=== PATIENT | male | born 1960 | race Caucasian/White ===

== ENCOUNTER 2021-06-08 14:21 | Day surgery (SDC) | payer MEDICARE, MEDICAID ==
[~2021-06-08] VITALS: Ht 175.3 cm; Wt 110.0 kg
[~2021-06-08 14:21] MED LIST: ASPI-1265 PO; DOCU100C41 PO; LISI10TA27 PO; LOP25T PO; NORCO10T PO; PRAV40TA65 PO; WARF-113 PO
[2021-06-08] MEDS ORDERED: normal saline 1,000 ML IV SCH (14:55)
[2021-06-08] MEDS ORDERED: diphenhydrAMINE 25mg capsule PO PRN (14:55)
[2021-06-08] MEDS ORDERED: LORazepam 0.5 MG tablet PO PRN (14:55)
[2021-06-08] MEDS ORDERED: ROSU40TA PO (15:16)
[2021-06-08] MEDS ORDERED: CLOP75TA15 PO (15:16)
[2021-06-08] MEDS ORDERED: clotrimazole 1% TOP (15:16)
[2021-06-08] MEDS ORDERED: METF-436 PO (15:16)
[2021-06-08] MEDS ORDERED: WARF4TAB69 PO (15:16)
[2021-06-08] MEDS ORDERED: ENOX120D SUBCUT (15:16)
[2021-06-08] MEDS ORDERED: FLUO1VIA8 (15:16)
[2021-06-08] MEDS ORDERED: WARF-55 PO (15:16)
[2021-06-08] MEDS ORDERED: KEN0.1O TP (15:16)
[2021-06-08] MEDS ORDERED: DOPamine 400mg/D5W 250ml 250 ML IV ONE (15:41)
[2021-06-08] MEDS ORDERED: LIDOcaine 1% (10mg/ml)w/preservative injection 20ml MDV ONE (15:41)
[2021-06-08] MEDS ORDERED: atropine 0.1mg/ml 10ml syringe ONE (15:41)
[2021-06-08] MEDS ORDERED: iohexol 350MG/ML 100ml bottle IV ONE ×2 (15:41→17:09)
[2021-06-08] MEDS ORDERED: phenylephrine 10mg/ml inj. ONE (15:41)
[2021-06-08] MEDS ORDERED: heparin 1,000unit/ml 10ml vial 10 ML ONE (15:45)
[2021-06-08 15:52] VITALS: BP 140/85
[2021-06-08 15:56] LABS: BASOPHILS % (AUTO) 0 % (0-1); EOSINOPHILS % (AUTO) 0.8 % (0-6); HEMOGLOBIN 14.4 g/dl (14.0-17.9); LYMPHOCYTES # (AUTO) 1.9 X10'3 (1.1-4.8); LYMPHOCYTES % (AUTO) 36.5 % (21-51); MEAN CORPUSCULAR HEMOGLOBIN 30.2 PG (27.0-31.0); MEAN CORPUSCULAR HGB CONC 33.6 g/dL (33.0-36.5); MEAN CORPUSCULAR VOLUME 89.7 FL (78-98); MEAN PLATELET VOLUME 9.3 FL (7.4-10.4); MONOCYTES # (AUTO) 0.5 X10'3 (0-0.9); NEUTROPHILS # (AUTO) 2.8 X10'3 (1.8-7.7); NEUTROPHILS % (AUTO) 53.7 % (42-75); PLATELET COUNT 110 X10'3 (140-440); RED BLOOD COUNT 4.79 X10'6 (4.70-6.10); RED CELL DISTRIBUTION WIDTH 14.3 % (11.5-14.5); WHITE BLOOD COUNT 5.3 X10'3 (4.5-11.0)
[2021-06-08 16:11] LABS: ANION GAP 10 (8-16); BLOOD UREA NITROGEN 12 MG/DL (7-18); CHLORIDE 103 MMOL/L (99-107); GLUCOSE 123 MG/DL (70-104); POTASSIUM 4.1 MMOL/L (3.5-5.1); SODIUM 137 MMOL/L (135-145); TOTAL CARBON DIOXIDE 23.9 MMOL/L (24-32); eGFR > 90 ML/MIN
[2021-06-08] MEDS ORDERED: midazolam 1 mg/ML 2ml injection ONE ×2 (17:26→17:33)
[2021-06-08 17:45] VITALS: BP 140/71
[2021-06-08 18:00] VITALS: BP 134/66
--- NOTE | 2021-06-08 18:00 | NUR ---
Patient in room . I have received report from Juan CACERES and had the opportunity to ask questions and assume patient care.
--- NOTE | 2021-06-08 18:05 | NUR ---
Problems reprioritized. Patient report given, questions answered & plan of care reviewed with gregor CACERES.
[2021-06-08 19:00] VITALS: BP 138/74
[2021-06-08] MEDS ORDERED: HYDROcodone/acetaminophen 5mg/325mg tablet PO PRN (20:10)
[2021-06-08] MEDS ORDERED: pseudoephedrine 30mg tablet PO PRN (20:10)
[2021-06-08] MEDS ORDERED: HYDROcodone/acetaminophen 10/325mg tab PO PRN (20:10)
--- NOTE | 2021-06-08 20:40 | NUR ---
Patient discharged to home with family. patient stable and with all belongings. no hematoma at surgical site. patient happy to go hoome.
== END 2021-06-08 20:45 | disposition home or self-care (01) ==
LOC: SSTAY O 14:21 → EDSTATUS 17:00 → PCU 3S 18:08 → SSTAY O 20:45 → EDSTATUS 06-09 17:00
PROVIDERS: ATTEND Internal Medicine Interventional Cardiology
DX: I65.23 Occlusion and stenosis of bilateral carotid arteries (principal); I25.10 Atherosclerotic heart disease of native coronary artery without angina pectoris; I11.0 Hypertensive heart disease with heart failure; I50.9 Heart failure, unspecified; G47.33 Obstructive sleep apnea (adult) (pediatric); I42.9 Cardiomyopathy, unspecified; Z88.0 Allergy status to penicillin; Z79.899 Other long term (current) drug therapy; Z95.5 Presence of coronary angioplasty implant and graft; Z95.1 Presence of aortocoronary bypass graft; Z86.718 Personal history of other venous thrombosis and embolism; Z86.73 Personal history of transient ischemic attack (TIA), and cerebral infarction without residual deficits
CPT/HCPCS: 36223; 36415; 80048; 82948; 85025; 85610; 93005; C1760; C1769; C1894; J0461; J1265; J1644; J2001; J2250; J2370; J7030; Q0163; Q9967; 36222; 99152; A4620; G0378

== ENCOUNTER 2022-10-05 08:44 | Emergency (ER) | payer MEDICARE, MEDICAID ==
[~2022-10-05] VITALS: Ht 175.3 cm; Wt 106.0 kg
[~2022-10-05 08:44] MED LIST changes: -ASPI-1265 PO; +CLOP75TA15 PO; +FLUO1VIA8; +KEN0.1O TP; +METF-436 PO; -PRAV40TA65 PO; +ROSU40TA PO; -WARF-113 PO; +WARF-55 PO; +WARF4TAB69 PO; +clotrimazole 1% TOP
[2022-10-05 09:02] VITALS: BP 169/93
== END 2022-10-05 10:54 | disposition home or self-care (01) ==
LOC: ER 08:44
DX: R04.0 Epistaxis (principal); I10 Essential (primary) hypertension; E78.00 Pure hypercholesterolemia, unspecified; Z91.018 Allergy to other foods; Z88.0 Allergy status to penicillin
CPT/HCPCS: 99282

== ENCOUNTER 2022-12-01 17:18 | Emergency (ER) | payer MEDICARE, MEDICAID ==
[~2022-12-01] VITALS: Ht 175.3 cm; Wt 109.0 kg
[2022-12-01 19:36] VITALS: BP 119/65
== END 2022-12-01 19:38 | disposition home or self-care (01) ==
LOC: ER 17:18
DX: R04.0 Epistaxis (principal); I25.10 Atherosclerotic heart disease of native coronary artery without angina pectoris; E78.00 Pure hypercholesterolemia, unspecified; I10 Essential (primary) hypertension; E11.9 Type 2 diabetes mellitus without complications; Z86.73 Personal history of transient ischemic attack (TIA), and cerebral infarction without residual deficits; Z95.1 Presence of aortocoronary bypass graft; Z95.5 Presence of coronary angioplasty implant and graft; Z60.2 Problems related to living alone; Z91.018 Allergy to other foods; Z88.0 Allergy status to penicillin; Z79.84 Long term (current) use of oral hypoglycemic drugs; Z79.01 Long term (current) use of anticoagulants; Z79.899 Other long term (current) drug therapy
CPT/HCPCS: 99281

== ENCOUNTER 2025-08-05 03:36 | Emergency (ER) | payer MEDICARE, MEDICAID ==
[~2025-08-05] VITALS: Ht 175.3 cm; Wt 89.0 kg
[2025-08-05 03:48] VITALS: BP 153/88; PULSE 98; RESP 15; TEMP 96.8; O2SAT 98
== END 2025-08-05 06:03 | disposition left against medical advice (07) ==
LOC: ER 03:37
DX: R04.0 Epistaxis (principal); Z88.0 Allergy status to penicillin; Z91.018 Allergy to other foods; Z88.8 Allergy status to other drugs, medicaments and biological substances; Z53.21 Procedure and treatment not carried out due to patient leaving prior to being seen by health care provider

== ENCOUNTER 2025-09-23 10:24 | Outpatient (CLI) | payer MEDICARE, MEDICAID ==
[2025-09-20 09:24] LABS: CREATININE 0.70 MG/DL (0.60-1.10); TOTAL CARBON DIOXIDE 25.5 MMOL/L (24-32); eGFR > 90 ML/MIN
--- NOTE | 2025-09-23 12:39 | RADIOLOGY REPORT ---
Exam: CT CTA NECK W/ IV CONTRAST INDICATION: occlusion and stenosis of carotid artery stent in rt - lt occluded/ f/u EXAM DATE: 09/23/2025 10:38 AM COMPARISON: None TECHNIQUE: CTA neck with intravenous contrast. 3D image postprocessing was performed on a dedicated workstation and images were used for interpretation and reporting. RADIATION DOSE: Angio: CTDIvol: 18.09 mGy, DLP: 638.67 mGy*cm FINDINGS: CTA neck: On the right there is severe calcified plaque within the proximal ICA resulting in a short segmental severe stenosis stenosis better quantified with ultrasound due to artifact from the dense calcium. On the left there is densely calcified plaque throughout the proximal and mid ICA with high-grade stenosis proximally and occlusion throughout the mid and distal portion reopacification of the ICA terminus. Both MCAs and ACAs are patent with no proximal occlusion. Vertebrals are patent. IMPRESSION: Long segmental left ICA occlusion with recanalization of the ICA terminus. Severe stenosis versus occlusion of the proximal right ICA. Ultrasound would better assess due to the dense calcium and subsequent artifact on CT. CAROTID STENOSIS REFERENCE Distal internal carotid artery diameter as the denominator for stenosis measurement: MILD = <50% stenosis. MODERATE = 50-69% stenosis. SEVERE = 70-89% stenosis. CRITICAL = 90-99% stenosis. OCCLUDED = 100% stenosis.
== END 2025-09-23 23:59 | disposition home or self-care (01) ==
LOC: RAD 10:24
PROVIDERS: ATTEND Internal Medicine Interventional Cardiology
DX: I65.22 Occlusion and stenosis of left carotid artery (principal); I25.810 Atherosclerosis of coronary artery bypass graft(s) without angina pectoris
CPT/HCPCS: 36415; 70498; 80048; Q9967